=== PATIENT | male | born 1950 | race Caucasian/White ===

== ENCOUNTER 2020-11-07 10:17 | Emergency (ER) | payer MEDICARE, OTHER, SELFPAY ==
[2020-11-07 10:20] VITALS: BP 136/100; PULSE 104; RESP 18; TEMP 36.7; O2SAT 100
[2020-11-07 10:56] VITALS: PULSE 89; O2SAT 98
[2020-11-07 10:58] LABS: Add Manual Diff / Slide Review NO; Basophils Absolute Auto 100 /uL (0-100); Basophils Percent Auto 0.8 % (0-2); Eosinophils Absolute Auto 100 /uL (0-450); Hematocrit 29.1 % (41-53); Hemoglobin 10.3 g/dL (13.5-17.5); Lymphocytes Absolute Auto 1300 /uL (1100-4500); Lymphocytes Percent Auto 15.8 % (25-40); Mean Corpuscular HGB Conc 35.4 % (30-36); Mean Corpuscular Hemoglobin 35.5 PG (26-34); Mean Corpuscular Volume 100.1 fL (80-100); Monocytes Absolute Auto 1000 /uL (0-900); Monocytes Percent Auto 12.6 % (3-14); Neutrophils Absolute Auto 5700 /uL (1500-7000); Neutrophils Percent Auto 69.8 % (50-75); Platelet Count 407 X10^3/uL (150-400); Red Cell Distribution Width 13.7 % (11.6-14.8); White Blood Cell Count 8.1 X10^3/uL (4.5-11.0)
[2020-11-07 11:00] VITALS: BP 131/80; PULSE 82; O2SAT 98
[2020-11-07 11:06] LABS: INR 1.1 (0.9-1.3); Prothrombin Time 12.5 SECONDS (10.1-12.7)
[2020-11-07 11:09] LABS: PTT Partial Thromboplastin Tim 25 SECONDS (26.4-36.2)
[2020-11-07 11:12] LABS: Alanine Aminotransferase 24 IU/L (<50); Albumin 4.2 g/dL (3.5-5.0); Albumin Globulin Ratio 1.2 (1.0-2.8); Alkaline Phosphatase 75 U/L (38-126); Aspartate Aminotransferase 46 IU/L (17-59); Bilirubin Total 0.5 mg/dL (0.2-1.3); Blood Urea Nitrogen 17 mg/dL (9-20); Calcium 10.7 mg/dL (8.4-10.2); Carbon Dioxide 30 mmol/L (22-32); Chloride 97 mmol/L (98-107); Estimated Glomerular Filt Rate > 60.0 mL/min (>60); Globulin 3.5 g/dL (1.7-4.1); Glucose 100 mg/dL (80-110); HEMOLYSIS 16 (0-50); Potassium 3.5 mmol/L (3.4-5.1); Sodium 132 mmol/L (137-145); Total Protein 7.7 g/dL (6.3-8.2)
--- NOTE | 2020-11-07 11:22 | ED.GENADULT ---
HPI - General Adult General Chief complaint: Abdominal Pain Stated complaint: stomach pain Time Seen by Provider: 11/07/20 10:57 Source: patient Mode of arrival: Ambulatory Limitations: no limitations History of Present Illness HPI narrative: 70-year-old male who is been seen multiple times for abdominal discomfort at outside facilities. He was told that he had diverticulitis. He completed a course of antibiotics yesterday. He states that the abdominal discomfort that he has been having is becoming less frequent and less intense but he is still having it. He was also having some dark colored stools at the time. He was told that he needed to contact his primary doctor to discuss a follow-up in to have a referral sent to have a colonoscopy and a endoscopy. He is here because he states he is having problems getting in to see his primary doctor. He does have a follow-up with Gastroenterology in approximately 1 month from now. He states that he was told that if he was admitted to the hospital he could have the colonoscopy done sooner. Related Data Home Medications Medication Instructions Recorded Confirmed aspirin 81 mg tablet 81 mg PO DAILY 11/07/20 11/07/20 Allergies Allergy/AdvReac Type Severity Reaction Status Date / Time No Known Drug Allergies Allergy Verified 11/07/20 10:35 Review of Systems Constitutional Constitutional: Denies fever(s) and Denies headache(s) ENT Ears, Nose, Mouth, and Throat: Denies headache(s) Cardiovascular Cardiovascular: Reports system reviewed and no additional complaints, except as documented Respiratory Respiratory: Reports system reviewed and no additional complaints, except as documented Gastrointestinal Gastrointestinal: Reports as per HPI Genitourinary Genitourinary: Reports system reviewed and no additional complaints, except as documented Musculoskeletal Musculoskeletal: Reports system reviewed and no additional complaints, except as documented Integumentary/Breasts Skin/Breast: Reports system reviewed and no additional complaints, except as documented Neurologic Neurologic: Denies headache(s) Hematologic/Lymphatic On Anticoagulants: No Allergic/Immunologic Allergic/Immunologic: Reports system reviewed and no additional complaints, except as documented Patient History Medical History DVT (deep venous thrombosis) Social History Smoking Status: Former smoker Smoking Status: Former smoker alcohol intake frequency: other Substance Use Type: marijuana Exam Initial Vital Signs Initial Vital Signs: Vital Signs Temperature 98.0 F 11/07/20 10:20 Pulse Rate 104 H 11/07/20 10:20 Respiratory Rate 18 11/07/20 10:20 Blood Pressure 136/100 H 11/07/20 10:20 Pulse Oximetry 100 11/07/20 10:20 Const General: cooperative, comfortable and well developed [facility] Head: normal to inspection and normocephalic Eyes General: appearance normal, both eyes and all related structures Resp Effort & Inspection: normal respiratory effort Cardio Rate: tachycardic GI Inspection: normal to inspection Palpation: soft and No tender Neuro General: patient alert, patient awake, patient oriented x3 and moves all extremities Extrem General: normal to inspection and capillary refill normal Psych Appearance: grossly normal and well kempt Course Orders Ordered: ED Orders 11/07/20 10:35 EKG-12 Lead Stat 11/07/20 10:47 Type and Screen Stat 11/07/20 10:53 Complete Blood Count AUTO DIFF Stat Comprehensive Metabolic Panel Stat Partial Thromboplastin Time Stat Prothrombin Time INR Stat 11/07/20 11:45 Urinalysis and Microscopic Stat Vital Signs Vital signs: Vital Signs - 8 hr 11/07/20 10:20 11/07/20 10:56 11/07/20 11:00 Temperature 98.0 F Pulse Rate 104 H 89 82 Respiratory Rate 18 Blood Pressure 136/100 H 131/80 Pulse Oximetry 100 98 98 Medical Decision Making Lab Data Lab results reviewed: Yes I reviewed the patient's lab results. Result diagrams: 11/07/20 10:53 11/07/20 10:53 Labs: Lab Results 11/07/20 11/07/20 11/07/20 Range/Units 10:53 10:53 10:53 WBC 8.1 (4.5-11.0) X10^3/uL RBC 2.90 L (4.5-5.9) X10^6/uL Hgb 10.3 L (13.5-17.5) g/dL Hct 29.1 L (41-53) % MCV 100.1 H (80-100) fL MCH 35.5 H (26-34) PG MCHC 35.4 (30-36) % RDW 13.7 (11.6-14.8) % Plt Count 407 H (150-400) X10^3/uL Neut % (Auto) 69.8 (50-75) % Lymph % (Auto) 15.8 L (25-40) % [place] % (Auto) 12.6 (3-14) % Eos % (Auto) 1.0 L (2-4) % Baso % (Auto) 0.8 (0-2) % Neut # (Auto) 5700 (2466-2086) /uL Lymph # (Auto) 1300 (5245-0719) /uL Med[place] # (Auto) 1000 H (0-900) /uL Eos # (Auto) 100 (0-450) /uL Baso # (Auto) 100 (0-100) /uL PT 12.5 (10.1-12.7) SECONDS INR 1.1 (0.9-1.3) APTT 25 L (26.4-36.2) SECONDS Sodium 132 L (137-145) mmol/L Potassium 3.5 (3.4-5.1) mmol/L Chloride 97 L (98-107) mmol/L Carbon Dioxide 30 (22-32) mmol/L BUN 17 (9-20) mg/dL Creatinine 1.13 (0.66-1.25) mg/dL Estimated GFR > 60.0 (>60) mL/min BUN/Creatinine Ratio 15.0 (6-22) Glucose 100 (80-110) mg/dL Calcium 10.7 H (8.4-10.2) mg/dL Total Bilirubin 0.5 (0.2-1.3) mg/dL AST 46 (17-59) IU/L ALT 24 (<50) IU/L Alkaline Phosphatase 75 (38-126) U/L Total Protein 7.7 (6.3-8.2) g/dL Albumin 4.2 (3.5-5.0) g/dL Globulin 3.5 (1.7-4.1) g/dL Albumin/Globulin Ratio 1.2 (1.0-2.8) Urine Color Urine Appearance Urine pH (4.5-8.0) Ur Specific [place] (1.000-1.035) Urine Protein (Negative) Urine Glucose (UA) (Negative) g/dL Urine Ketones (NEGATIVE) Urine Occult Blood (Negative) Urine Nitrate (Negative) Urine Bilirubin (NEGATIVE) Urine Urobilinogen (0.2) E.U./dL Ur Leukocyte Esterase (NEGATIVE) Urine RBC (0-5/HPF) Urine WBC (0-5/HPF) Urine Bacteria (None) Ur Culture Indicated? Micro UA Comment 11/07/20 Range/Units 11:45 WBC (4.5-11.0) X10^3/uL RBC (4.5-5.9) X10^6/uL Hgb (13.5-17.5) g/dL Hct (41-53) % MCV (80-100) fL MCH (26-34) PG MCHC (30-36) % RDW (11.6-14.8) % Plt Count (150-400) X10^3/uL Neut % (Auto) (50-75) % Lymph % (Auto) (25-40) % [place] % (Auto) (3-14) % Eos % (Auto) (2-4) % Baso % (Auto) (0-2) % Neut # (Auto) (7562-2070) /uL Lymph # (Auto) (1535-6244) /uL Med[place] # (Auto) (0-900) /uL Eos # (Auto) (0-450) /uL Baso # (Auto) (0-100) /uL PT (10.1-12.7) SECONDS INR (0.9-1.3) APTT (26.4-36.2) SECONDS Sodium (137-145) mmol/L Potassium (3.4-5.1) mmol/L Chloride (98-107) mmol/L Carbon Dioxide (22-32) mmol/L BUN (9-20) mg/dL Creatinine (0.66-1.25) mg/dL Estimated GFR (>60) mL/min BUN/Creatinine Ratio (6-22) Glucose (80-110) mg/dL Calcium (8.4-10.2) mg/dL Total Bilirubin (0.2-1.3) mg/dL AST (17-59) IU/L ALT (<50) IU/L Alkaline Phosphatase (38-126) U/L Total Protein (6.3-8.2) g/dL Albumin (3.5-5.0) g/dL Globulin (1.7-4.1) g/dL Albumin/Globulin Ratio (1.0-2.8) Urine Color Yellow Urine Appearance Clear Urine pH 6.5 (4.5-8.0) Ur Specific [place] 1.010 (1.000-1.035) Urine Protein Negative (Negative) Urine Glucose (UA) Trace H (Negative) g/dL Urine Ketones Negative (NEGATIVE) Urine Occult Blood Negative (Negative) Urine Nitrate Negative (Negative) Urine Bilirubin Negative (NEGATIVE) Urine Urobilinogen 0.2 (0.2) E.U./dL Ur Leukocyte Esterase Negative (NEGATIVE) Urine RBC None seen (0-5/HPF) Urine WBC None seen (0-5/HPF) Urine Bacteria None seen (None) Ur Culture Indicated? Cult not indicated Micro UA Comment Microscopic normal ECG Data Attestation: I personally reviewed and interpreted this ECG as follows: Interpretation: Sinus rhythm Ventricular rate 84 Occasional PVC Normal QRS Normal QTC No ST T wave changes MDM Narrative Medical decision making narrative: Patient is nontoxic. His labs unremarkable. Vital signs unremarkable. No indication for admission to the hospital currently. I will give him contact information for General surgery group here in [facility]. He also has a follow-up with Gastroenterology already scheduled. I had a discussion with him regarding all with this. He was given return precautions. He expressed understanding and agreement Discharge Plan Departure Patient Disposition: Home Clinical Impression: Abdominal pain Instructions: DI for Abdominal Pain-Adult Activity Restrictions/Additional Instructions: Continue all of your medications as directed. I do recommend you contact the [facility] at the number provided below to see if they can get you in sooner to have the colonoscopy in the endoscopy. I also recommend she contact h your primary doctor for a follow-up. Return to the emergency department for any new or worsening symptoms Prescriptions: No Action aspirin 81 mg Tablet 81 mg PO DAILY RF: 0 Referrals: Rosa Moon MD [Physician] -
[2020-11-07 11:39] VITALS: BP 140/77; PULSE 84; O2SAT 98
[2020-11-07 11:47] LABS: Appearance Urine UA CLEAR; Bilirubin Urine UA NEGATIVE (NEGATIVE); Color Urine UA YELLOW; Glucose Urine UA TRACE g/dL (Negative); Ketones Urine UA NEGATIVE (NEGATIVE); Leukocyte Esterase Urine UA NEGATIVE (NEGATIVE); Nitrite Urine UA NEGATIVE (Negative); Occult Blood Urine UA NEGATIVE (Negative); Protein Urine UA NEGATIVE (Negative); Urobilinogen Urine UA 0.2 E.U./dL (0.2); pH Urine UA 6.5 (4.5-8.0)
[2020-11-07 11:54] LABS: Bacteria Urine None Seen; Culture Indicated Urine Cult Not Indicated; RBC Urine None Seen (0-5/HPF); Urine Comments Microscopic Normal; WBC Urine None Seen (0-5/HPF)
[2020-11-07 12:00] VITALS: BP 138/70; PULSE 83; O2SAT 99
== END 2020-11-07 12:21 | disposition home or self-care (01) ==
PROVIDERS: Emergency Provider Emergency Medicine
DX: R10.9 Unspecified abdominal pain (principal); R03.0 Elevated blood-pressure reading, without diagnosis of hypertension
CPT/HCPCS: 36415; 80053; 81001; 85025; 85610; 85730; 86850; 86900; 86901; 93005; 93010; 99283; 99284

== ENCOUNTER → 2021-01-07 09:27 | Outpatient (CLI) | payer MEDICARE, OTHER, SELFPAY ==
[2021-01-07 13:01] LABS: COVID19 -Nasal RAPID Negative (Negative)
== END ==
PROVIDERS: Referring Provider Physician Assistant; Visit Provider Physician Assistant
DX: Z01.812 Encounter for preprocedural laboratory examination (principal); Z20.822 Contact with and (suspected) exposure to COVID-19
CPT/HCPCS: 87635

== ENCOUNTER 2021-01-08 07:44 | Day surgery (SDC) | payer MEDICARE, OTHER, SELFPAY ==
[2021-01-08] VITALS (7 sets, daily range): BP systolic 124–154; BP diastolic 75–93; PULSE 91–101; RESP 14–22; TEMP 36.4–36.6; O2SAT 98–99; BMI 25.5
--- NOTE | 2021-01-08 | PATH_ITS ---
[facility] Accession Number: [id number] . 01 Material submitted: . PART A: esophagus - BIOPSY MID ESOPHAGUS PART B: colon - ASCENDING COLON POLYP PART C: colon - TRANSVERSE COLON POLYP . 02 Diagnosis: A. Biopsy Mid Esophagus: Squamous mucosa with no diagnostic abnormality. Intraepithelial eosinophils are not increased. Negative for dysplasia and malignancy. . B. Ascending Colon Polyp: Multiple (approximately 14) portions of tubular adenoma. . C. Transverse Colon Polyp: Tubular adenoma. MRV 01/10/2021 1220 Local . 02 Electronically signed: . Loulou Jimenez MD, Pathologist NPI- [id number] . 01 Gross description: . A. Received in formalin, labeled mid esophagus and consists of two aldrich-white fragments of soft tissue measuring 0.3 x 0.2 x 0.2 cm in aggregate. The specimen is entirely submitted in cassette A1. B. Received in formalin, labeled ascending colon polyp consists of multiple aldrich-pink fragments of soft tissue measuring 1.2 x 1.0 x 0.5 cm in aggregate. The specimen is filtered and entirely submitted in cassette B1. C. Received in formalin, labeled transverse colon polyp consists of a 1.0 x 1.0 x 0.6 cm aldrich-pink polyp. The base is inked blue. The specimen is trisected and entirely submitted in cassette C1. (EA:[id number]) /MRV 01/09/2021 1245 Local . 02 Pathologist provided ICD-10: K63.5, R19.5 . 02 CPT . 585926, 325539, 858434 Performed at: 01 [facility] [address] [place] [address] [address], [place], [place] [id number] MD Ulises Ndiaye MD Phone: [phone] Performed at: 02 [facility] [address] [place] [id number] MD Mary Jo Sears MD Phone: [phone]
[2021-01-08] MEDS: SODIUM CHLORIDE 0.9% 1,000 ML 84 ML IV (08:22)
--- NOTE | 2021-01-08 08:44 | PM.HP.1 ---
History of Present Illness History of Present Illness Date Patient Seen: 01/08/21 Time Patient Seen: 08:44 Chief complaint: SDC Narrative: I reviewed 's note. No significant changes. Patient History Medical History DVT (deep venous thrombosis) Family & Social History Social History: household members spouse Tobacco & Substance use: Smoking Status Former smoker alcohol intake frequency other Substance Use Type marijuana Meds Home Medications and Allergies Home Medications Medication Instructions Recorded Confirmed Type aspirin 81 mg tablet 81 mg PO DAILY 11/07/20 01/08/21 History fenofibrate 54 mg tablet 54 mg PO DAILY 01/08/21 01/08/21 History furosemide 40 mg tablet 40 mg PO DAILY 01/08/21 01/08/21 History metoprolol succinate 100 mg 100 mg PO DAILY 01/08/21 01/08/21 History tablet,extended release 24 hr rosuvastatin 20 mg tablet 20 mg PO DAILY 01/08/21 01/08/21 History spironolactone 25 mg tablet 25 mg PO DAILY 01/08/21 01/08/21 History Allergies Allergy/AdvReac Type Severity Reaction Status Date / Time No Known Drug Allergies Allergy Verified 01/08/21 08:22 Review of Systems Review of Systems ROS: Yes All systems reviewed with the patient and are negative except as otherwise documented Exam Vital Signs (past 8 hours): - 01/08/21 08:05 Temperature 97.9 F Pulse Rate 98 H Respiratory Rate 14 Blood Pressure 154/87 H Pulse Oximetry 98 Oxygen Delivery Method Room Air Const General: cooperative and comfortable Orientation: alert HENMT Head: normocephalic Ears: external ears normal Nose: external nose normal Face and sinus: normal facial exam Eyes General: appearance normal, both eyes and all related structures Neck Neck: normal visual inspection Chest Chest: normal inspection of the chest Resp Effort & Inspection: normal respiratory effort Cardio Rate: regular rate GI Inspection: normal to inspection Skin General: no rashes or lesions noted and No jaundice Neuro General: patient alert and moves all extremities Cognition: normal cognition Speech: speech normal Extrem General: normal to inspection Psych Appearance: grossly normal Assessment & Plan Assessment & Plan narrative: Anorexia pill dysphagia rectal bleeding. EGD and colonoscopy are pursued. Time Spent With Patient Critical Care time: I spent a total of [] minutes of critical care time on this patient's care today; this time is exclusive of procedural time.
--- NOTE | 2021-01-08 08:46 | PM.PREOP ---
Pre-operative Note COVID-19 COVID-19 status: Negative Result date/Date tested (Pos, Neg/Pending): 01/07/21 Interval Note History & Physical reviewed/Exam performed by Physician: Yes Changes to H&P: No ASA Class (for procedural sedation): II
--- NOTE | 2021-01-08 10:21 | P.OP.EGD&C_ITS ---
Operative Date/Time/Diagnoses Date of procedure: 01/08/21 Time of procedure: 10:21 Pre-op diagnosis: Dysphagia rectal bleeding Post-op diagnosis: same Procedure & Clinicians Study performed: Esophagoscopy with biopsy and colonoscopy with hot snare polypectomy Same procedure as scheduled: No Indications: Dysphagia rectal bleeding Surgeon: Yunier Palmer Procedure Notes SCOAP/Timeout: Done Procedure in detail: After the risks and benefits were explained, written and verbal informed consent was obtained. The patient was brought into the procedure room and placed into the left lateral decubitus position. Please see nurse derivatives trader notes for sedation details. The scope was introduced into the mouth through the bite block and advanced under direct visualization to the 2nd portion of the duodenum. The scope was slowly withdrawn carefully examining the mucosa for any defects or lesions. Retroflexed views were accomplished in the stomach. The stomach was decompressed, the scope was then removed from the patient who tolerated the procedure well. Patient was then turned around a digital rectal examination accomplished scope was introduced into the rectum and advanced to the cecum as identified by the ap pendiceal orifice and ileocecal valve. The scope was slowly withdrawn to carefully examine the mucosa for any defects or lesions. Multiple direct views were made through the dentate line for exclusion of pathology the colon was decompressed scope removed from the patient who tolerated the procedure reasonably well. Adult colonoscope Bowel prep fair at best Scope withdrawal time: 20 minutes Sedation minutes: 36 Complications: none Impression: 1. Duodenum: Not seen 2. Stomach: Not seen 3. Esophagus: Patient had a very tortuous esophagus with an element of partially circumferential rings more notable in the distal 3rd. Because of the tortuosity and ring nature distally I could not advance the scope into the stomach I therefore took biopsies from the midesophagus for exclusion of eosinophilic esophagitis. 4. Colon: There was some diverticulosis in the sigmoid. Patient had evidence of cat scratch colon in the right colon characterized by numerous sub epithelial bleeding foci likely a function of the bowel prep no sign of any inflammatory bowel disease. The patient in the ascending colon there was an approximately 14 mm sessile polyp removed with hot snare. In the proximal transverse there is an approximately 16 mm the sessile polyp also removed with hot snare within the limitations of bowel prep no other significant pathology was appreciated. Endoscopic diagnosis 1. Incomplete EGD 2. Tortuous partially ringed esophagus 3. Diverticulosis 4. Colon polyps 5. Grade 2 internal hemorrhoids Post-procedure Plan for aftercare: 1. Await histopathology 2. Repeat colonoscopy with an extra day of Prograf in 1 year 3. Barium esophagram will be ordered 4. if eosinophilic esophagitis is confirmed then I would recommend a 6 week course of fluticasone Disposition: PACU
== END 2021-01-08 11:14 | disposition home or self-care (01) ==
PROVIDERS: Referring Provider Internal Medicine Gastroenterology; Visit Provider Internal Medicine Gastroenterology
PROC: 0DJ08ZZ Inspection of Upper Intestinal Tract, Via Natural or Artificial Opening Endoscopic (ICD-10-PCS; CPT 43235; principal; 2021-01-08 09:00)
PROC: 0DJD8ZZ Inspection of Lower Intestinal Tract, Via Natural or Artificial Opening Endoscopic (ICD-10-PCS; CPT 45378; 2021-01-08 09:00)
DX: K62.5 Hemorrhage of anus and rectum (principal); R13.10 Dysphagia, unspecified; K57.30 Diverticulosis of large intestine without perforation or abscess without bleeding; D12.2 Benign neoplasm of ascending colon; D12.3 Benign neoplasm of transverse colon
CPT/HCPCS: 45385; 43239; J2704

== ENCOUNTER → 2021-12-11 13:31 | Outpatient (CLI) | payer MEDICARE, OTHER, SELFPAY ==
--- NOTE | 2021-12-11 | DI.RAD.S_ITS ---
PROCEDURE: FL BARIUM SWALLOW INDICATIONS: Dysphagia, unspecified COMPARISON: None. FINDINGS: Given the provided history , which was reportedly inability to pass a an endoscope into the stomach, the element of the examination was administration of a 13 millimeter barium tablet, which progressed to the level of the distal esophagus and remained there for the entire duration of exam, in excess of 10 minutes. During this time, upright and supine and prone administration of thin and thick barium demonstrated a normal morphology and function of the esophagus. There is no evidence of extrinsic compression intrinsic mass in the esophagus. There is a small hiatal hernia. Visualized proximal stomach has a normal appearance. Mild reflux is noted throughout the examination. IMPRESSION: Luminal narrowing in the distal esophagus with a rest of a 13 millimeter barium tablet in the distal esophagus approximately 6 centimeters proximal to the gastroesophageal junction. Findings are suggestive of a stricture, although there is no direct evidence of web. Mild reflux was noted throughout the examination in supine and prone positions. Dictated by: Michael Fung M.D. on 12/11/2021 at 15:07 Approved by: Michael Fung M.D. on 12/11/2021 at 15:10
== END ==
PROVIDERS: PCP Physician Assistant; Referring Provider Internal Medicine Gastroenterology; Visit Provider Internal Medicine Gastroenterology
DX: R13.10 Dysphagia, unspecified (principal); K21.9 Gastro-esophageal reflux disease without esophagitis; K44.9 Diaphragmatic hernia without obstruction or gangrene
CPT/HCPCS: 74220

== ENCOUNTER → 2022-01-28 10:52 | Outpatient (CLI) | payer MEDICARE, OTHER, SELFPAY ==
[2022-01-28 12:08] LABS: COVID19 -Nasal RAPID Negative (Negative)
== END ==
PROVIDERS: PCP Physician Assistant; Visit Provider Surgery
DX: Z20.822 Contact with and (suspected) exposure to COVID-19 (principal); Z01.812 Encounter for preprocedural laboratory examination
CPT/HCPCS: 87635; C9803

== ENCOUNTER 2022-01-29 11:13 | Day surgery (SDC) | payer MEDICARE, OTHER, SELFPAY ==
[2022-01-29] VITALS (7 sets, daily range): BP systolic 108–151; BP diastolic 68–92; PULSE 68–80; RESP 14–97; TEMP 36.6–37; O2SAT 15–98; BMI 26.6
--- NOTE | 2022-01-29 | PATH_ITS ---
[facility] Accession Number: [id number] . 01 Material submitted: . PART A: gastrointestinal site - GASTRIC BIOPSIES PART B: duodenum - DUODENAL BIOPSIES PART C: esophagus - ESOPHAGEAL BIOPSIES @ 35 CM PART D: colon - CECAL POLYP PART E: colon - TRANSVERSE COLON POLYPS X2 . 01 Clinical history: . A: R/O H.PYLORI B: DUODENITIS . 01 Diagnosis: A. Gastric, Biopsy: Gastric mucosa with mild chronic inflammation. No Helicobacter pylori organisms identified on immunohistochemical evaluation. No intestinal metaplasia, dysplasia or malignancy identified. . B. Duodenum, Biopsy: Duodenal mucosa with no diagnostic abnormality. Negative for active inflammation, features of sprue, dysplasia, or malignancy. . C. 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 No dysplasia or malignancy identified. See comment. . D. Cecal Polyp, Biopsy: Colonic mucosa with benign lymphoid aggregate. No dysplasia or neoplasia identified. . E. Transverse Colon Polyps, Biopsy: Tubular adenoma x2. [facility] 02/03/2022 1014 Local . 01 Comment: C. 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 Correlation with clincial endoscopic appearance is recommended. . 01 Electronically signed: . Mavis Pacheco MD, Pathologist NPI- [id number] . 01 Gross description: . Part A: GASTRIC BIOPSIES: Received in formalin are multiple fragment(s) of aldrich, soft tissue measuring 0.7 x 0.3 x 0.1 cm in aggregate submitted entirely in 1 cassette(s) Part B: DUODENAL BIOPSIES: Received in formalin are 2 fragment(s) of aldrich, soft tissue measuring 0.5 x 0.2 x 0.1 cm to 0.2 x 0.2 x 0.1 cm submitted entirely in 1 cassette(s) Part C: ESOPHAGEAL BIOPSIES @ 35 CM: Received in formalin are 3 fragment(s) of aldrich, soft tissue measuring 0.5 x 0.1 x 0.1 cm to 0.2 x 0.1 x 0.1 cm submitted entirely in 1 cassette(s) Part D: CECAL POLYP: Received in formalin is 1 fragment(s) of aldrich, soft tissue measuring 0.2 x 0.1 x 0.1 cm submitted entirely in 1 cassette(s) Part E: TRANSVERSE COLON POLYPS X2: Received in formalin are 2 fragment(s) of aldrich, soft tissue measuring 0.4 x 0.2 x 0.2 cm to 0.4 x 0.2 x 0.1 cm submitted entirely in 1 cassette(s) /CPE 01/30/2022 0930 Local . 01 Microscopic: . A. An immunohistochemical stain was performed to evaluate for Helicobacter organisms and is negative. The control stain showed appropriate reactivity. . 01 Pathologist provided ICD-10: K29.70, K22.70, K63.89, D12.3 . 01 CPT . 436053, 073051, 160510, 618538, W38606 Specimen Comment: A courtesy copy of this report has been sent to [phone] Performed at: 01 [facility] [address] [place] [address], [place], [place] [id number] MD Ulises Ndiaye MD Phone: [phone]
[2022-01-29] MEDS: SODIUM CHLORIDE 0.9% 1,000 ML 70 ML IV (12:05)
--- NOTE | 2022-01-29 12:31 | PM.HP.1 ---
History of Present Illness History of Present Illness Date Patient Seen: 01/29/22 Time Patient Seen: 12:32 Chief complaint: DX COLONOSCOPY & EGD Narrative: Patient is a very pleasant 72-year-old male who presented for EGD and colonoscopy. He had attempted EGD in December 2020 however due to significant stenosis of the esophagus there unable to pass the scope. This was biopsied and negative for is eosinophilia. At that time he also had a colonoscopy where he was noted to have 2 advanced polyps and a poor preparation. A 1 year recheck was recommended due to the poor prep. He does have esophageal dysphagia. Patient History Medical History DVT (deep venous thrombosis) Family & Social History Social History: household members spouse Tobacco & Substance use: Smoking Status Never smoker alcohol intake frequency 0-2 drinks per day Substance Use Type marijuana Meds Home Medications and Allergies Home Medications Medication Instructions Recorded Confirmed Type aspirin 81 mg tablet 81 mg PO DAILY 11/07/20 01/29/22 History fenofibrate 54 mg tablet 54 mg PO DAILY 01/08/21 01/29/22 History furosemide 40 mg tablet 40 mg PO DAILY 01/08/21 01/29/22 History metoprolol succinate 100 mg 100 mg PO DAILY 01/08/21 01/29/22 History tablet,extended release 24 hr rosuvastatin 20 mg tablet 20 mg PO DAILY 01/08/21 01/29/22 History spironolactone 25 mg tablet 25 mg PO DAILY 01/08/21 01/29/22 History Allergies Allergy/AdvReac Type Severity Reaction Status Date / Time No Known Drug Allergies Allergy Verified 01/08/21 08:22 Review of Systems Review of Systems ROS: Yes All systems reviewed with the patient and are negative except as otherwise documented Exam Vital Signs (past 8 hours): - 01/29/22 11:48 Temperature 98.1 F Pulse Rate 80 Respiratory Rate 16 Blood Pressure 151/92 H Pulse Oximetry 96 Oxygen Delivery Method Room Air Oxygen Delivery Method Room Air Const General: cooperative, healthy appearing, comfortable and No acute distress HENTN Head: normocephalic and atraumatic Resp Effort & Inspection: normal respiratory effort, able to speak in complete sentences and no audible wheezes Auscultation: clear to auscultation bilaterally Cardio Rate: regular rate Rhythm: regular rhythm GI Palpation: soft Assessment & Plan Assessment & Plan narrative: 1. Esophageal dysphagia 2. Esophageal stricture 3. History of colon polyps, history poor prep EGD and colonoscopy today, further recommendations to follow Time Spent With Patient Critical Care time: I spent a total of [] minutes of critical care time on this patient's care today; this time is exclusive of procedural time.
--- NOTE | 2022-01-29 13:13 | P.OP.EGD&C_ITS ---
Operative Date/Time/Diagnoses Date of procedure: 01/29/22 Time of procedure: 12:38 Procedure Notes Procedure in detail: Surgeon: Kourtney Lai DO Procedure: Esophagogastroduodenoscopy with biopsy, balloon dilation and colonoscopy with polypectomy Preoperative diagnosis: 1. Esophageal dysphagia 2. History of esophageal stricture 3. History of advanced colon polyps December 2020 with poor preparation Postoperative diagnosis: 1. LA-a esophagitis at 35 cm, biopsied 2. Esophageal stricture at 35 cm-dilated with 12-15 mm balloon 3. Erosive gastritis, biopsied 4. Duodenitis, biopsied 5. 3 mm cecal polyp removed with cold forceps 6. Two polyps in the transverse colon 5-8 mm removed with cold snare Medications: Monitored anesthesia care Preanesthesia Assessment An H and P was performed/updated and the Px?s ASA class is 2. The procedure was discussed in detail with the patient. The potential risks and complications including infection, bleeding, missed lesions, perforation, need for surgery in case of perforation, prolonged hospital stay, and were explained. A brief question and answer period was allotted and once all questions were answered, informed consent was obtained. The patient was brought back to the procedure room and placed on standard monitoring. The patient?s vital signs were monitored continuously throughout the entire procedure. Prior to starting, a timeout was performed to confirm the patient?s identity, allergies, medications, and procedure. Procedure in detail The patient was placed in left lateral decubitus position and a bite block was inserted. The tip of the upper endoscope was placed into the mouth and advanced without difficulty under direct visualization into the esophagus. Esophagus: Schwertner-colored mucosa and erosive esophagitis LA-a was noted at 34-35 cm this was biopsied. This was proximal to a stricture located at 35 cm. This was dilated with a 12-15 mm balloon. A rent was appreciated after dilation, moderate improvement of stricture noted. Stomach: Erosive gastritis in the antrum and body, biopsied to rule out H pylori Duodenum: Mild duodenitis noted in the 1st and 2nd portion of the duodenum, biopsied After the upper endoscopy, preparations were made for the colonoscopy. Once adequate sedation was obtained a HERMAN was performed. The digital rectal examination did not reveal any palpable lesions. The tip of the colonoscope was placed in the anal canal and advanced without difficulty all the way to the cecum which was identified by the appendiceal orifice and the ileocecal valve. Diverticulosis were noted throughout the entire colon. There was an area of wh at appeared to be diverticular related in the sigmoid colon. Were able to traverse this area. He was noted to have a 3 mm polyp in the cecum removed with forceps. 2 polyps were found in the transverse colon measuring 5 mm size which were removed snare. The patient tolerated the procedure well and will be brought back to the recovery area to be discharged once criteria are met. The prep was judged to be adequate to identify polyps less than 6 mm. The withdrawal time was 12min. Complications There were no complications and estimated blood loss was minimal. Recommendations Resume previous diet Continue outpatient medications - recommend acid reducing medication twice daily for 6 weeks after dilation Follow-up pathology results Repeat colonoscopy after pathology results are reviewed Follow-up at our office if persistent symptoms An emergency contact number was given to the patient for any complications related to the procedure
== END 2022-01-29 14:15 | disposition home or self-care (01) ==
PROVIDERS: PCP Physician Assistant; Referring Provider Student in an Organized Health Care Education/Training Program; Visit Provider Student in an Organized Health Care Education/Training Program
PROC: 0DJ08ZZ Inspection of Upper Intestinal Tract, Via Natural or Artificial Opening Endoscopic (ICD-10-PCS; CPT 43235; principal; 2022-01-29 12:30)
PROC: 0DJD8ZZ Inspection of Lower Intestinal Tract, Via Natural or Artificial Opening Endoscopic (ICD-10-PCS; CPT 45378; 2022-01-29 12:30)
DX: R13.10 Dysphagia, unspecified (principal); Z12.11 Encounter for screening for malignant neoplasm of colon; Z86.010 Personal history of colon polyps; K20.90 Esophagitis, unspecified without bleeding; K22.2 Esophageal obstruction; K29.80 Duodenitis without bleeding; K29.50 Unspecified chronic gastritis without bleeding; K22.70 Barrett's esophagus without dysplasia; D12.0 Benign neoplasm of cecum
CPT/HCPCS: 43249; 45385; 45380; 43239; J2704; J3010

== ENCOUNTER → 2023-03-22 13:07 | Outpatient (CLI) | payer MEDICARE, OTHER, SELFPAY ==
--- NOTE | 2023-03-22 13:10 | DI.MRI.S_ITS ---
PROCEDURE: MR LUMBAR SPINE WO CON INDICATIONS: LUMBAR PAIN TECHNIQUE: Noncontrast sagittal T1 spin echo and T2 fast echo, sagittal STIR, and T2 fast spin echo through the lumbar spine. In cases with scoliosis, additional coronal T2 fast spin echo may be performed. COMPARISON: [facility] [place], CR, XR LUMBAR SPINE 2 OR 3 VIEWS, 01/10/2022, 10:09. FINDINGS: Image quality: Excellent. Alignment and Curvature: 4 mm retrolisthesis of L4 on L5. Trace retrolisthesis of L3 on L4. Bone Marrow: Marrow is of normal overall signal. No acute vertebral body compression fractures. Spinal Cord: Conus medullaris terminates at the L1-L2 level. Visualized cord demonstrates normal signal and size. Paraspinous Soft Tissues: No paravertebral masses. T12-L1: Disc bulge. Mild facet hypertrophy. No canal stenosis or foraminal stenosis. L1-L2: Chronic disc height loss. Disc bulge. Somewhat prominent epidural lipomatosis. Mild facet hypertrophy. Mild canal stenosis. No significant foraminal stenosis. L2-L3: Disc bulge. Epidural lipomatosis. Facet hypertrophy. Moderate canal stenosis. No significant foraminal stenosis. L3-L4: Severe chronic disc height loss. Disc bulge. Prominent circumferential epidural lipomatosis results in a trefoil appearance of the thecal sac, and moderate to severe canal stenosis. Facet hypertrophy. No significant foraminal narrowing. L4-L5: Severe chronic disc height loss. Retrolisthesis of L4 on L5. Prominent circumferential epidural lipomatosis results in a trefoil appearance of the thecal sac and moderate to severe canal stenosis. Facet hypertrophy. No significant foraminal stenosis. L5-S1: Severe chronic disc height loss. Disc space calcifications. Diffuse disc bulge. Exuberant epidural lipomatosis results in a trefoil appearance of the thecal sac and severe canal stenosis. Bilateral facet hypertrophy. Moderate bilateral foraminal narrowing with flattening deformity on the exiting bilateral L5 nerve roots. IMPRESSION: 1. There is advanced multilevel disc height loss and multilevel facet arthropathy. 2. Exuberant epidural lipomatosis significantly increases canal stenosis at multiple levels. 3. In part secondary to epidural lipomatosis, canal stenosis is mild at L1-L2, moderate at L2-L3, moderate to severe at L3-L4, moderate to severe at L4-L5, and severe at L5-S1. 4. Moderate bilateral foraminal narrowing at L5-S1. Dictated by: Humberto Grigsby M.D. on 03/23/2023 at 19:45 Approved by: Humberto Grigsby M.D. on 03/23/2023 at 19:55
== END ==
PROVIDERS: PCP Physician Assistant; Referring Provider Physical Medicine & Rehabilitation; Visit Provider Physical Medicine & Rehabilitation
DX: M48.062 Spinal stenosis, lumbar region with neurogenic claudication (principal); M48.07 Spinal stenosis, lumbosacral region; M47.816 Spondylosis without myelopathy or radiculopathy, lumbar region; M47.817 Spondylosis without myelopathy or radiculopathy, lumbosacral region
CPT/HCPCS: 72148

== ENCOUNTER 2023-08-29 08:00 | Emergency (ER) | payer MEDICARE, OTHER, SELFPAY ==
[2023-08-29] VITALS (38 sets, daily range): BP systolic 114–170; BP diastolic 74–93; PULSE 65–82; RESP 17–31; TEMP 36.6; O2SAT 94–98; BMI 28.1
--- NOTE | 2023-08-29 | DI.RAD.S_ITS ---
PROCEDURE: XR SHOULDER LT MIN 2V INDICATIONS: POST REDUCTION LEFT DISLOCATION TECHNIQUE: 2 views of the shoulder were acquired. COMPARISON: [facility], CR, XR SHOULDER LT MIN 2V, 08/29/2023, 8:12. FINDINGS: Bones: No fractures or dislocations. No suspicious bony lesions. Visualized ribs appear intact. Interval reduction with good anatomic alignment. Soft tissues: No suspicious soft tissue calcifications. IMPRESSION: Interval reduction with good anatomic alignment. No visualized acute fracture. However, if clinical concern and/or pain persist, short interval imaging followup in 7-10 days is recommended, as occult injury cannot be definitively excluded. Dictated by: Marina Smith M.D. on 08/29/2023 at 11:15 Approved by: Marina Smith M.D. on 08/29/2023 at 11:15
--- NOTE | 2023-08-29 08:09 | DI.RAD.S_ITS ---
PROCEDURE: XR SHOULDER LT MIN 2V INDICATIONS: fall TECHNIQUE: 3 views of the shoulder were acquired. COMPARISON: None. FINDINGS: Bones: There is inferior medial location of the humeral head in relation to the glenohumeral joint space. No discrete fractures. Soft tissues: No suspicious soft tissue calcifications. IMPRESSION: Anterior dislocation without visualized fracture. Dictated by: Marina Smith M.D. on 08/29/2023 at 8:33 Approved by: Marina Smith M.D. on 08/29/2023 at 8:33
--- NOTE | 2023-08-29 09:17 | ED.GENADULT ---
HPI - General Adult General Chief complaint: Extremity Injury, Upper Stated complaint: Fall, L Shoulder Injury Time Seen by Provider: 08/29/23 09:15 Source: patient Mode of arrival: Wheelchair Limitations: no limitations History of Present Illness HPI narrative: 73-year-old male history of coronary artery disease, hypertension, dyslipidemia, CHF on aspirin 81 mg daily, patient has chronic back issues has had radial ablation and corticosteroid injections in his low back. Patient presents with fall patient states he was going up the stairs had gone up the landing his right leg sort of gave out which he states does happen occasionally associated with his chronic back issues. He states he fell backwards with his left arm outstretched and had pain his shoulder. He notes a little bit of numbness tingling in his fingers of his hands. Patient denies any other injuries. He states he did not hit his head, denies any neck or back pain, no chest pain or shortness of breath. No new abdominal back or flank pain. No new numbness tingling in his extremities except for little bit in his left hand. Patient states he is able to move his hand without issue no issues with the wrist or elbow with movement or pain. Patient states this just occurred this morning. He notes he has a history of VA in the , chronic heart failure is on aspirin daily, he has had prior knee surgery, no prior cardiac interventions or stents has had radial ablation for his black as well as injections. No known drug allergies. No tobacco, alcohol or recreational drugs. He does note that when he had his knee surgery he was hallucinating for a day or 2 afterwards likely based on whatever medications he received. Related Data Home Medications Medication Instructions Recorded Confirmed aspirin 81 mg tablet 81 mg PO DAILY 11/07/20 01/29/22 fenofibrate 54 mg tablet 54 mg PO DAILY 01/08/21 01/29/22 furosemide 40 mg tablet 40 mg PO DAILY 01/08/21 01/29/22 metoprolol succinate 100 mg 100 mg PO DAILY 01/08/21 01/29/22 tablet,extended release 24 hr rosuvastatin 20 mg tablet 20 mg PO DAILY 01/08/21 01/29/22 spironolactone 25 mg tablet 25 mg PO DAILY 01/08/21 01/29/22 Previous Rx's Medication Instructions Recorded acetaminophen 300 mg-codeine 30 mg 1 tab PO Q8H PRN pain #10 tabs 08/29/23 tablet Allergies Allergy/AdvReac Type Severity Reaction Status Date / Time No Known Drug Allergies Allergy Verified 08/29/23 08:13 Review of Systems Review of Systems ROS Unobtainable: All systems reviewed & are unremarkable except as noted in HPI and below Patient History Medical History DVT (deep venous thrombosis) Social History household members: spouse Smoking Status: Never smoker Smoking Status: Never smoker alcohol intake frequency: 0-2 drinks per day Substance Use Type: marijuana Exam Narrative Exam Narrative: GEN: Patient appears in mild distress. A&O x3 HEAD: No evidence of trauma, no raccoon/Bingham sign. NECK: Nontender, painless range of motion, trachea midline Negative Nexus criteria, negative line tenderness, distracting injury, altered mental status, neuro deficit, recent EtOH. EYES: PERRLA, EOMI ENT: External inspection normal, trachea is midline, TM's are normal no hemotypanum, Nares are clear, no septal hematoma, no dental or oral injury, airway is normal and with normal occlusion, No bony tenderness RESP: Chest is nontender and has symmetric movement, no ecchymosis, breath sounds are normal no crackles, wheezes or rales CVS: Heart sounds are normal, no murmur noted, No JVD. ABG/GI: Nontender, soft, normal bowel sounds, no distention, no organomegaly, pelvic rock is negative NEURO: Oriented AOx3, neuro is grossly intact, sensation and motor is normal all 4 extremities moving, cranial nerves II through XII are intact, GCS is 15 PSYCH: Normal mood and affect SKIN: Intact, warm and dry, no crepitus and without decubitus BACK: No CVA tenderness, no vertebral tenderness, no step-off's, no crepitus EXT: Left shoulder pain, patient has obvious deformity, unable to lift or move at the left shoulder, has normal range of motion of the left elbow wrist hands and fingers. Has sensation throughout left and right upper extremity. 2+ radial pulses bilaterally. Hips are nontender, no pedal edema, normal color and temperature, normal range of motion of extremities with normal tendon exam, 2+ pulses in all four extremities Initial Vital Signs Initial Vital Signs: Vital Signs Temperature 98 F 08/29/23 08:09 Pulse Rate 82 08/29/23 08:09 Respiratory Rate 17 08/29/23 08:09 Blood Pressure 159/93 H 08/29/23 08:09 Pulse Oximetry 96 08/29/23 08:09 Oxygen Delivery Method Room Air 08/29/23 08:09 Procedures Orthopedic Joint Reduction Joint #1: Time Out Performed: Yes Side: left Joint Reduction Location: shoulder Analgesia: procedural sedation Technique used: traction/counter-traction and direct manipulation (superior pressure at axilla with flexion of shoulder.) Post-reduction neuro exam: intact and no change Post-reduction vascular: intact and no change Post Reduction X-Ray Obtained: Yes Post Reduction X-Ray Results: reduced Splint Applied: Yes (sling) Patient Tolerated Procedure: Well and No complications Procedural Sedation Consent signed: Yes Time out performed: Yes Indication: fracture/dislocation reduction ASA Class: II Mallampati Airway Classification: Class II Time of Last PO Intake: 07:00 Preparation: fire fighting equipment specialist applied, pulse oximeter, capnometry used, supplemental O2 applied, suction/airway equipment at bedside and IV secured IV Propofol dose (mg): 85 ED Sedation Level: Moderate (Concious) Patient Tolerated Procedure: Well and No complications Complications: hypoventilation Interventions: Assist by BVM and Oxygen applied Course Orders Ordered: Discontinued Medications Ketorolac Tromethamine (Ketorolac 30 Mg/Ml Vial) 15 mg IV NOW ONE Stop: 08/29/23 09:35 Last Admin: 08/29/23 09:57 Dose: 15 mg Documented By: LYNN Propofol (Propofol 200 Mg/20 Ml Vial) 85 mg 1 mg/kg (85 mg) IV NOW ONE Stop: 08/29/23 09:35 Last Admin: 08/29/23 10:32 Dose: 85 mg Documented By: LYNN Vital Signs Vital signs: Vital Signs - 8 hr 08/29/23 10:35 08/29/23 10:36 08/29/23 10:36 Pulse Rate 76 65 Respiratory Rate 26 H 30 H Blood Pressure 146/91 H Pulse Oximetry 94 97 08/29/23 10:40 08/29/23 10:41 08/29/23 10:41 Pulse Rate 66 67 Respiratory Rate 20 25 H Blood Pressure 139/77 Pulse Oximetry 97 96 08/29/23 10:45 08/29/23 10:45 08/29/23 10:50 Pulse Rate 71 66 Respiratory Rate 31 H 21 Blood Pressure 149/83 H Pulse Oximetry 95 97 08/29/23 10:50 08/29/23 10:55 08/29/23 10:55 Pulse Rate 66 Respiratory Rate 20 Blood Pressure 147/76 H 137/76 Pulse Oximetry 97 08/29/23 11:00 08/29/23 11:01 08/29/23 11:01 Pulse Rate 66 69 Respiratory Rate 22 30 H Blood Pressure 146/74 H Pulse Oximetry 97 97 08/29/23 11:05 08/29/23 11:05 08/29/23 11:10 Pulse Rate 68 67 Respiratory Rate 19 24 Blood Pressure 144/75 H Pulse Oximetry 98 98 08/29/23 11:10 08/29/23 11:15 08/29/23 11:20 Pulse Rate 67 Respiratory Rate 21 Blood Pressure 154/75 H 156/81 H Pulse Oximetry 97 08/29/23 11:20 08/29/23 11:25 08/29/23 11:30 Pulse Rate 66 67 66 Respiratory Rate 20 19 19 Blood Pressure Pulse Oximetry 97 97 96 08/29/23 11:30 08/29/23 11:35 08/29/23 11:35 Pulse Rate 67 Respiratory Rate 18 Blood Pressure 156/75 H 153/81 H Pulse Oximetry 96 08/29/23 11:40 08/29/23 11:41 08/29/23 11:41 Pulse Rate 68 68 Respiratory Rate 17 25 H Blood Pressure 149/78 H Pulse Oximetry 97 97 08/29/23 11:45 08/29/23 11:45 08/29/23 11:50 Pulse Rate 69 68 Respiratory Rate 23 18 Blood Pressure 147/82 H Pulse Oximetry 97 98 08/29/23 11:50 08/29/23 11:55 08/29/23 12:00 Pulse Rate 69 Respiratory Rate 23 Blood Pressure 161/88 H 149/80 H Pulse Oximetry 96 08/29/23 12:00 08/29/23 12:05 08/29/23 12:05 Pulse Rate 68 67 Respiratory Rate 18 18 Blood Pressure 114/80 Pulse Oximetry 97 97 08/29/23 12:10 08/29/23 12:11 08/29/23 12:11 Pulse Rate 69 71 Respiratory Rate 26 H 25 H Blood Pressure 151/81 H Pulse Oximetry 97 96 Medical Decision Making Imaging Data Extremity x-ray #1: Radiologist's Impression: Close Shoulder X-Ray (Signed) Marina Smith - 08/29/23 Lumbar Spine MRI (Signed) Ying Grigsbyic - 03/22/23 Outside Stress Test 11/20/22 Barium Swallow X-Ray (Signed) Michael Fung - 12/11/21 Launch?[address] [address] XRay Report Signed Patient: Stephen Sharpe MR#: [id number] : 1950 Acct:[id number] Age/Sex: 73 / M Date of Service: 08/29/23 Loc: ED Accession Number: [id number] Procedure: XR shoulder LT min 2V Ordering Provider: Evie Mccain D.O. PROCEDURE: XR SHOULDER LT MIN 2V INDICATIONS: fall TECHNIQUE: 3 views of the shoulder were acquired. COMPARISON: None. FINDINGS: Bones: There is inferior medial location of the humeral head in relation to the glenohumeral joint space. No discrete fractures. Soft tissues: No suspicious soft tissue calcifications. IMPRESSION: Anterior dislocation without visualized fracture. Dictated by: Marina Smith M.D. on 08/29/2023 at 8:33 Approved by: Marina Smith M.D. on 08/29/2023 at 8:33 [facility] Narrative Medical decision making narrative: 73-year-old male with fall, obvious dislocation on x-ray. Patient denies any other injuries denies hitting his head. He is on aspirin daily. Clinically cleared with C-spine. Discussed risks versus benefits with patient, he is agreeable for reduction. X-ray does not show any obvious fracture. He does note he would hallucinations after knee surgery based on some of the medications he does not know exactly what he received. Discussed there is some risk with this but will use propofol which is fairly quick on and off onset. Patient is family are in the room for the discussion. Patient tolerated procedure well, he appears to be reduced on prelim x-rays. Formal read shows reduction. Spoke with Dr. Foster, plan for follow up outpatient. Given contact. Discussed with patient we will give short course of Tylenol with codeine as he has had these in the past. He states feels much better. Neurovascularly intact tingling has not improved from earlier. Discussed return precautions. Discharge Plan Departure Patient Disposition: Home Clinical Impression: Anterior shoulder dislocation Instructions: DI for Shoulder Dislocation Activity Restrictions/Additional Instructions: Follow up with Orthopedic surgery care or primary care. Contact is included below. I would discuss with your physician other physical therapy would be helpful to help strengthen the muscles of your shoulder. Continue to wear sling for the next several days, you can slowly increase your range of motion gently. You can take Tylenol up to a 1000 mg every 6 hours as needed for pain and/or ibuprofen up to 600 mg every 6 hours as needed. If necessary you can take 1 tablet Tylenol with codeine instead of Tylenol every 6-8 hours as needed. This medication can make you sleepy do not drive, perform hazardous activities or make any major decisions while taking it. This medication will make you constipated please take a stool softener once to twice daily until stools are soft and regular. Prescription sent to [facility] in [place] Splint Care: Keep splint clean and dry. Elevated affected body part to decrease swelling. OK to use ice pack on the affected body part. Use for 15-20 minutes each time, for 5-6x per day. If you develop worsening pain, numbness, tingling, discoloration of the affected body part, loosen the splint by loosening the NINI wrap, and either see your doctor for an urgent re-assessment, or return to the Emergency Department. Return to the Emergency Department for any new or worsening symptoms. Prescriptions: New acetaminophen-codeine 300-30 mg tablet 1 tab PO Q8H PRN (Reason: pain) Qty: 10 0RF No Action furosemide 40 mg tablet 40 mg PO DAILY fenofibrate 54 mg tablet 54 mg PO DAILY metoprolol succinate 100 mg tablet extended release 24 hr 100 mg PO DAILY rosuvastatin 20 mg tablet 20 mg PO DAILY spironolactone 25 mg tablet 25 mg PO DAILY aspirin 81 mg Tablet 81 mg PO DAILY Patient Comments: stopped r/t black stool Referrals: Meggan Capps PA-C [Primary Care Provider] - Armando Foster MD [Physician] - Stand Alone Forms: Patient Portal/API
[2023-08-29] MEDS: KETOROLAC 30 MG/ML VIAL 15 MG IV (09:57)
[2023-08-29] MEDS: propofoL 200 MG/20 ML VIAL 85 MG IV (10:32)
== END 2023-08-29 12:20 | disposition home or self-care (01) ==
PROVIDERS: Emergency Provider Emergency Medicine; PCP Physician Assistant
DX: S43.005A Unspecified dislocation of left shoulder joint, initial encounter (principal); W10.9XXA Fall (on) (from) unspecified stairs and steps, initial encounter
CPT/HCPCS: 23650; 73030; 99152; 99153; 99284; J1885; J2704

== ENCOUNTER 2024-07-21 07:25 | Outpatient (CLI) | payer MEDICARE, OTHER, SELFPAY ==
[2024-07-21] VITALS (8 sets, daily range): BP systolic 110–151; BP diastolic 58–93; PULSE 66–73; RESP 16–21; TEMP 36.4; O2SAT 93–97
[2024-07-21] MEDS: MIDAZOLAM 2 MG/2 ML VIAL IV (08:42)
[2024-07-21] MEDS: iopamidoL 15 ML VIAL 3 ML INJ (08:48)
[2024-07-21] MEDS: DEXAMETHASONE 10 MG/ML VIAL INJ (08:48)
[2024-07-21] MEDS: BETAMETHASONE 30 MG/5 ML MDV 12 MG INJ (08:48)
[2024-07-21] MEDS: BUPIVACAINE 0.25% (PF) VIAL 2 ML INJ (08:49)
--- NOTE | 2024-07-21 08:58 | P.PCN_ITS ---
Date/Time/Diagnoses Date of procedure: 07/21/24 Time of procedure: 08:58 Pre-procedure diagnosis: 1. HNP WITH RADICULAR FEATURES, 2. MULTILEVEL CENTRAL STENOSIS, Post-procedure diagnosis: same Procedure Notes Procedure: 1. FLUOROSCOPICALLY GUIDED CONTRAST CONTROLLED INTERLAMINAR EPIDURAL STEROID INJECTION - L3/4 Indications: Stephen is referred by ROMELIA Capps for treatment of Bilateral Foraminal Stenosis L>R LE symptoms. Physician: Jonathan Murrieta Total Fluoroscopy time (seconds): 7 Total sedation minutes: 12 Complications: none Procedure in detail & Post-procedure care: FINDINGS Multilevel Central Spinal Stenosis with Nerve Root Compression DESCRIPTION OF PROCEDURE Fluoroscopically guided, contrast-controlled L3/4 translaminar epidural steroid injection. Following review of allergy and review of potential side effects and complications, including, but not necessarily limited to, infection, allergic reaction, local tissue breakdown, temporary as well as permanent nerve injury, paralysis, stroke and possible , the patient indicated that the patient understood and agreed to proceed. An informed consent document was signed by the patient, witnessed by a nurse, and placed in the patient's chart. Additionally, other treatment options including modalities, medications, and physical therapy were reviewed with the patient. After review of previous anaesthesic history and IV conscious sedation the patient was deemed safe to proceed with today?s procedure with IV conscious sedation as ASA class II designation. Safety time-out was performed to confirm patient ID, procedure to be performed and site of procedure. IV sedation was accomplished with a combination of 2mg of Versed was administered by the RN after DO order, titrated to patient comfort during the course of the procedure while the patient remained responsive to all verbal commands. In the prone position, following sterile prep and drape of the lumbar region, the L3/4 translaminar space was identified fluoroscopically. The skin was anesthetized via a 25-gauge, 1.5-inch needle with 1% lidocaine solution. At this point, a 22-gauge short bevel spinal needle was atraumatically introduced and advanced under fluoroscopic guidance into the region of the L3/4 translaminar space. Depth was confirmed on lateral view. Radiological data, including multiple fluoroscopic views of the lumbar spine, reveal a spinal needle at the L3/4 translaminar space. Lateral views then show placement of the needle in the epidural space. Subsequent views show contrast material flowing superiorly and inferiorly in the epidural space. No vascular or intrathecal uptake is observed. At this point, using loss of resistance technique with saline and air, the epidural space was entered. This was confirmed following negative aspiration with injection of approximately 1.5 cc of Isovue 200, showing excellent epidural flow without vascular or intrathecal uptake. At this point, 1cc of 1% lidocaine solution combined with 3cc or 10mg of dexamethasone and 12mg of betamethasone was injected without incident. The patient tolerated the procedure well without signs or symptoms of complications prior to transfer to the recovery area continued monitoring without incident. The patient was then transferred to the recovery area where they were observed for an appropriate period of time after the injection. The patient reported a VAS score of 6 prior to the procedure and a post- procedure VAS of 0. POST OP INSTRUCTIONS The patient was provided a Pain Log to continue to record their response to the target-specific procedure prior to follow-up visit with their referring physician. Additionally, specific post-injection care instructions and a contact number to our office were provided if concerns arise regarding possible complications associated with the procedure are suspected.
== END 2024-07-21 09:17 | disposition home health service (06) ==
LOC: RAD 07:25
PROVIDERS: PCP Physician Assistant; Referring Provider Physical Medicine & Rehabilitation; Visit Provider Physical Medicine & Rehabilitation
DX: M51.16 Intervertebral disc disorders with radiculopathy, lumbar region (principal); M48.062 Spinal stenosis, lumbar region with neurogenic claudication; M96.1 Postlaminectomy syndrome, not elsewhere classified
CPT/HCPCS: 62323; 99152; J0702; J1100; J2250; J3490

== ENCOUNTER → 2025-01-23 07:57 | Outpatient (CLI) | payer MEDICARE, OTHER, SELFPAY ==
--- NOTE | 2025-01-23 08:09 | DI.MRI.S_ITS ---
PROCEDURE: MR LUMBAR SPINE WO CON INDICATIONS: lower back pain TECHNIQUE: Noncontrast sagittal T1 spin echo and T2 fast echo, sagittal STIR, and T2 fast spin echo through the lumbar spine. In cases with scoliosis, additional coronal T2 fast spin echo may be performed. COMPARISON: [facility], MR, MR LUMBAR SPINE WO CON, 03/22/2023, 13:40. FINDINGS: Image quality: Some images are limited by patient motion or other artifacts Alignment and Curvature: Mild levoscoliosis some of which may be artifact from positioning. Bone Marrow: Heterogeneous bone marrow is again noted unchanged commonly related to Modic degenerative endplate changes and hematopoietic marrow without focal area of edema or other lesion. Spinal Cord: Conus medullaris terminates at the L1 level. Paraspinous Soft Tissues: No paravertebral masses. Again noted postoperative changes status post right mike laminectomies at L2-L5. Moderate to severe degenerative changes throughout the lumbar spine with degenerative disc disease, disc-osteophytes, facet osseous and ligamentous hypertrophic changes at multiple levels relatively unchanged. No MR evidence of acute fracture, or significant subluxation T12-L1: Degenerative disc disease with diffuse circumferential disc bulge, mild facet osseous and ligamentous hypertrophic changes without central stenosis or significant neural foraminal narrowing, unchanged. L1-L2: Moderate diffuse circumferential disc bulge, degenerative disc disease unchanged. Moderate facet osseous and ligamentous hypertrophic changes without significant central stenosis or neural foraminal narrowing. L2-L3: Degenerative disc disease with moderate diffuse circumferential disc bulge indents the anterior thecal sac and moderate to severe facet osseous and ligamentous hypertrophic changes with mild bilateral neural foraminal narrowing and mild central stenosis unchanged. L3-L4: Disc disease with moderate to severe diffuse circumferential disc bulge indents the anterior thecal sac with moderate to severe bilateral neural foraminal narrowing left greater than right. Distortion of the normal shape of the thecal sac with more slit like appearance (series 6, image 22 some of which may be related to epidural lipomatosis and or scarring or other cause with associated moderate to severe central stenosis unchanged. L4-L5: Severe degenerative disc disease with moderate to severe diffuse circumferential disc bulge flattens the anterior thecal sac with moderate to severe facet osseous and ligamentous hypertrophic changes with moderate to severe bilateral neural foraminal narrowing left greater than right unchanged. Distortion of the normal shape of the thecal sac similar to L3-4. L5-S1: Severe degenerative disc disease with diffuse circumferential disc bulge large anterior osteophyte and severe facet osseous ligamentous hypertrophic changes with severe bilateral neural foraminal narrowing unchanged. No significant central stenosis. IMPRESSION: Overall no significant change compared to the prior exam with possible epidural lipomatosis or scarring, distorted shape of the thecal sac most notably at L4-5 as discussed above. Moderate and Severe degenerative changes at multiple levels as discussed above relatively unchanged. Dictated by: Vinicuis Pederson M.D. on 01/23/2025 at 9:19 Approved by: Vinicius Pederson M.D. on 01/23/2025 at 10:41
== END ==
LOC: MRI 07:58
PROVIDERS: PCP Physician Assistant; Referring Provider Physician Assistant; Visit Provider Orthopaedic Surgery
DX: M51.369 Other intervertebral disc degeneration, lumbar region without mention of lumbar back pain or lower extremity pain (principal); M51.379 Other intervertebral disc degeneration, lumbosacral region without mention of lumbar back pain or lower extremity pain; M47.816 Spondylosis without myelopathy or radiculopathy, lumbar region; M47.817 Spondylosis without myelopathy or radiculopathy, lumbosacral region; M48.061 Spinal stenosis, lumbar region without neurogenic claudication; M48.07 Spinal stenosis, lumbosacral region; Z98.890 Other specified postprocedural states
CPT/HCPCS: 72148

== ENCOUNTER 2025-01-26 09:39 | Outpatient (CLI) | payer MEDICARE, OTHER, SELFPAY ==
[2025-01-26] VITALS (7 sets, daily range): BP systolic 91–137; BP diastolic 51–85; PULSE 76–86; RESP 17–20; TEMP 36.6; O2SAT 93–97
[2025-01-26] MEDS: MIDAZOLAM 2 MG/2 ML VIAL IV (11:23)
[2025-01-26] MEDS: BETAMETHASONE 30 MG/5 ML MDV 12 MG INJ (11:25)
[2025-01-26] MEDS: BETAMETHASONE 30 MG/5 ML MDV 6 MG INJ (11:27)
--- NOTE | 2025-01-26 11:40 | PM.PROC.IR.1 ---
Date/Time/Diagnoses Date of procedure: 01/26/25 Time of procedure: 11:40 Pre-procedure diagnosis: 1. FORAMINAL STENOSIS WITH LE SYMPTOMS Post-procedure diagnosis: same Procedure Notes Procedure: 1. FLUOROSCOPICALLY GUIDED CONTRAST CONTROLLED TRANSFORAMINAL EPIDURAL STEROID INJECTION - BILATERAL L2/3 TFESI Indications: Stephen is referred by ROMELIA Capps for treatment of Foraminal Stenosis with bilateral LE Symptoms Physician: Jonathan Murrieta Total Fluoroscopy time (seconds): 12 Total sedation minutes: 17 Complications: none Procedure in detail & Post-procedure care: FINDINGS Foraminal Nerve Root Compression secondary to disc disease and facet hypertrophy DESCRIPTION OF PROCEDURE Following review of allergy and review of potential side effects and complications, including, but not necessarily limited to, infection, allergic reaction, local tissue breakdown, stroke, temporary or permanent nerve injury, paralysis, and possible , the patient indicated that the patient understood and agreed to proceed. An informed consent document was signed by the patient, witnessed by a nurse, and placed in the patient's chart. Additionally, other treatment options including medications, modalities, and physical therapy were reviewed with the patient. After review of previous anaesthesic history and IV conscious sedation the patient was deemed safe to proceed with today?s procedure with IV conscious sedation as ASA class II designation. Safety time-out was performed to confirm patient ID, procedure to be performed and site of procedure. IV sedation was accomplished with a combination of 2mg of Versed was administered by the RN after DO order, titrated to patient comfort during the course of the procedure while the patient remained responsive to all verbal commands In the prone position following sterile prep and drape of the lumbar region, the right L2/3 posterior neuroforamen was identified fluoroscopically. The skin was anesthetized via a 25-gauge 1.5-inch needle with 1% lidocaine solution. At this point, a 25-gauge 3.5-inch spinal needle was atraumatically introduced and advanced under fluoroscopic guidance through the posterior right L2/3 neuroforamen to approximately the anterior aspect of the canal. Depth was confirmed on lateral view. Following negative aspiration, injection of approximately 1.5cc of Isovue 200 under live fluoroscopy in the AP view confirmed excellent flow along the nerve root, into the epidural space without vascular or intrathecal uptake observed Radiological data, including multiple fluoroscopic views of the lumbosacral spine, reveal a spinal needle at the right L2/3 posterior neuroforamen. Subsequent views show flow of contrast material flowing superiorly and inferiorly along the nerve root confirming epidural flow. Subsequently, a test dose of 1.5cc of 1% lidocaine solution was administered and patient was observed for two minutes for signs or symptoms of complications, including abdominal pain, shortness of breath, bilateral upper or lower extremity weakness, nausea and vomiting, prior to steroid injection. At this point, a total of 2cc or 10mg of dexamethasone and 6mg betamethasone was injected without incident. Attention was then refocused to the left L2/3 level where the identical procedure was replicated. The procedure tolerated the procedure well without signs or symptoms of complications prior to transfer to the recovery area continued monitoring without incident. The patient was then transferred to the recovery area where they were observed for an appropriate time after the injection. The patient reported a VAS score of 7 prior to the procedure and a post-procedure VAS of 0. POST OP INSTRUCTIONS The patient was provided a Pain Log to continue to record their response to the target-specific procedure prior to follow-up visit with their referring physician. Additionally, specific post-injection care instructions and a contact number to our office were provided if concerns arise regarding possible complications associated with the procedure are suspected.
== END 2025-01-26 12:14 | disposition home or self-care (01) ==
PROVIDERS: PCP Physician Assistant; Referring Provider Physical Medicine & Rehabilitation; Visit Provider Physical Medicine & Rehabilitation
DX: M48.061 Spinal stenosis, lumbar region without neurogenic claudication (principal); M51.16 Intervertebral disc disorders with radiculopathy, lumbar region; M47.26 Other spondylosis with radiculopathy, lumbar region
CPT/HCPCS: 64483; 99152; J0702; J1100; J2250